=== PATIENT | male | born 1975 | race Caucasian/White ===

== ENCOUNTER 2019-04-02 22:02 | Emergency (ER) | payer BC | END 2019-04-02 22:54 | disposition home or self-care (01) | LOC: ERS 22:02 | DX: S76.912A Strain of unspecified muscles, fascia and tendons at thigh level, left thigh, initial encounter (principal); X50.1XXA Overexertion from prolonged static or awkward postures, initial encounter; Y93.66 Activity, soccer | CPT/HCPCS: 99283 ==

== ENCOUNTER 2022-03-05 09:45 | Outpatient (CLI) | payer BC | END 2022-03-05 09:46 | disposition home or self-care (01) | LOC: BICRAD 09:45 | PROVIDERS: ATTEND Family Medicine | DX: M54.9 Dorsalgia, unspecified (principal) | CPT/HCPCS: 72100 ==